=== PATIENT | male | born 1955 | race Caucasian/White ===

== ENCOUNTER 2021-01-16 09:32 | Outpatient (CLI) | payer MEDICARE, SELFPAY ==
--- NOTE | 2021-01-16 09:36 | USCV_ITS ---
Lawson Miguel Age: 65 Gender: M : 1955 Exam Date: 01/16/2021 09:56 Ordering Phys: Margarita Lanza CUSTOMER ENGAGEMENT MANAGER Technologist: Tara Sharma Exam Location: [facility] [place] Indication: SCREENING HISTORY: Screening Diameter (cm) AP x Transverse x Length Velocity (cm/s) Waveform Prox Aorta: 1.67 x 1.78 x 62.40 Mid Aorta: 1.72 x 1.91 x 85.90 Distal Aorta: 1.87 x 1.79 x 91.50 Right Iliac Prox: 1.19 x 1.07 x 74.80 Left Iliac Prox: 0.97 x 1.21 x 90.10 Stent Prox Landing x x Aneurysmal Sac Max x x Lt Lat Sac Dim Rt Lat Sac Dim Stent Dist Landing x x Right Iliac Stent x x Left Iliac Stent x x Right Renal Art Left Renal Art FINDINGS: CONCLUSIONS No evidence of abdominal aortic or bilateral iliac aneurysm. Daren Alvarenga MD (Electronically Signed) Final Date: 17 January 2021 14:52 S
== END 2021-01-16 09:33 | disposition home or self-care (01) ==
LOC: US 09:34
PROVIDERS: PCP Nurse Practitioner Family; Visit Provider Nurse Practitioner Family
DX: Z13.6 Encounter for screening for cardiovascular disorders (principal)
CPT/HCPCS: 76706

== ENCOUNTER 2021-12-28 11:12 | Outpatient (CLI) | payer MEDICARE, SELFPAY ==
--- NOTE | 2021-12-28 11:29 | XRR_ITS ---
PROCEDURE INFORMATION: Exam: XR Left Knee Exam date and time: 12/28/2021 11:40 AM Age: 66 years old Clinical indication: Pain; Knee; Left; Additional info: Pain in left knee TECHNIQUE: Imaging protocol: Radiologic exam of the Left knee. Views: 3 views. COMPARISON: CR Ankle 3 views, LEFT* [id number] 05/23/2016 5:06 PM FINDINGS: Bones/joints: Mild tricompartmental osteoarthritis of the knee. Small joint effusion. Soft tissues: Normal. XR/XR knee LT 3V* [id number] IMPRESSION: 1. Mild tricompartmental osteoarthritis of the knee. 2. Small joint effusion.
== END 2021-12-28 11:13 | disposition home or self-care (01) ==
LOC: RAD 11:14
PROVIDERS: PCP Nurse Practitioner Family; Visit Provider Nurse Practitioner Family
DX: M25.562 Pain in left knee (principal)
CPT/HCPCS: 73562

== ENCOUNTER → 2022-01-03 09:33 | Outpatient (BNVA) | payer MEDICARE, SELFPAY | PROVIDERS: PCP Nurse Practitioner Family; Referring Provider Nurse Practitioner Family; Visit Provider Orthopaedic Surgery | DX: M17.12 Unilateral primary osteoarthritis, left knee (principal) | CPT/HCPCS: 20610; 99203; J0702; J3490 ==

== ENCOUNTER 2022-01-09 06:00 | Outpatient (RCR) | payer MEDICARE, SELFPAY | END 2022-02-07 23:59 | disposition home or self-care (01) | LOC: MPT 06:00 | PROVIDERS: PCP Nurse Practitioner Family; Referring Provider Orthopaedic Surgery; Visit Provider Orthopaedic Surgery | DX: M25.562 Pain in left knee (principal) | CPT/HCPCS: 97110; 97161; G0283 ==

== ENCOUNTER 2022-02-08 06:00 | Outpatient (RCR) | payer MEDICARE, SELFPAY | END 2022-03-09 23:59 | disposition home or self-care (01) | LOC: MPT 06:00 | PROVIDERS: PCP Nurse Practitioner Family; Visit Provider Orthopaedic Surgery | DX: M25.562 Pain in left knee (principal) | CPT/HCPCS: 97110; G0283 ==

== ENCOUNTER 2023-01-19 09:20 | Emergency (ER) | payer MEDICARE, SELFPAY ==
[2023-01-19 09:28] VITALS: PULSE 68; RESP 16; O2SAT 96; BMI 34.8
--- NOTE | 2023-01-19 09:29 | XRR_ITS ---
PROCEDURE INFORMATION: Exam: XR Right Hand Exam date and time: 01/19/2023 9:38 AM Age: 67 years old Clinical indication: Injury or trauma; Fall; Swelling (edema); Hand; Right; Additional info: Fall, injury, swelling TECHNIQUE: Imaging protocol: Radiologic exam of the right hand. Views: 3 or more views. COMPARISON: No relevant prior studies available. FINDINGS: Bones/joints: There is 5th metacarpophalangeal dislocation with dorsal displacement Soft tissues: of the proximal phalanx with respect to the metacarpal. There is no evidence for fracture. There is associated soft tissue swelling. XR/XR hand RT min 3V* [id number] IMPRESSION: Right 5th metacarpophalangeal dislocation.
[2023-01-19 09:32] VITALS: BP 175/104
--- NOTE | 2023-01-19 09:40 | ED_ITS ---
HPI - Extremity Problem General: Chief complaint: Extremity Injury, Upper Stated complaint: hsnf injury Time Seen by Provider: 01/19/23 09:29 History of Present Illness: Lawson Miguel is a 67-year-old [id number] male that presents to the emergency department with right hand pain. Patient states he slipped and fell. When trying to break his fall he hyperextended hand/wrist. Patient arrives with swelling to the dorsal aspect of the hand and tenderness to the ulnar aspect of the hand. No open wounds Sensation intact to light touch Denies previous injury to the hand Has a medical history that includes high cholesterol, hypertension, depression. Striking his head or loss of consciousness Denies neck, thoracic, lumbar back pain Denies any other extremity, muscle, joint pain Associated symptoms: Deny chest pain, fever(s) or rash Review of Systems General: Reports: 10 or more systems reviewed and unremarkable except in HPI and below Const: Denies: fever(s), chills, change in appetite, change in weight, fatigue or malaise Eyes: Denies: change in vision, eye discomfort, eye discharge or eye redness ENMT: Denies: throat pain, enlarged tonsils, odynophagia, hoarseness, ear or mastoid pain, ear discharge, change in hearing, tinnitus, nasal discharge, nasal congestion, post nasal drip or sinus pain Card: Denies: chest pain, palpitations, irregular heart rhythm, edema, dyspnea on exertion, orthopnea or leg pain with exertion Resp: Denies: dyspnea, productive cough, non-productive cough, wheezing, stridor or chest congestion GI: Denies: abdominal pain, nausea, vomiting, dysphagia, diarrhea, constipation, bloating, GI cramping or hematochezia : Denies: flank pain, dysuria, urinary frequency, urinary urgency, urinary hesitancy, oliguria or hematuria Musc: Denies: neck pain, back pain, extremity pain, joint pain, joint swelling, joint redness, joint warmth or muscle weakness Skin/Breast: Denies: rash, pruritus, erythema, photosensitivity or new lesions Neuro: Denies: headache(s), numbness in extremities, weakness in extremities, sensory changes, lack of coordination, difficulty walking, frequent falls, dizziness, confusion, Slurred speech present, difficulty communicating thoughts, seizure-like activity or involuntary movements Endo: Denies: polyuria, polydipsia or tired all the time Juancho/Lymph: Denies: easy bruising or easy bleeding PFSH ED PFSH: Social History (Updated 01/03/22 @ 10:09 by Callum Grullon LPN) Smoking and tobacco status: former smoker Alcohol intake: never Substance/Drug Use: never Physical Exam Const: COMMON NORMALS: no acute distress, patient oriented x3 and alert GENERAL APPEARANCE: cooperative ORIENTATION/CONSCIOUSNESS: Yes awake, Yes oriented to person, Yes oriented to place and Yes oriented to time HENMT: COMMON NORMALS: normocephalic and atraumatic HEAD & SCALP: normocephalic and atraumatic FACE & SINUS: normal facial exam MOUTH: Normal oral and palatal mucosa present THROAT: posterior oropharynx normal Eye: COMMON NORMALS: Equal, round and reactive pupils present, EOMs intact bilaterally, conjunctivae normal and no scleral icterus GENERAL EYE: appearance normal, both eyes and all related structures ALIGNMENT: Yes alignment normal PERIORBITAL: periorbital findings normal CONJUNCTIVA: Yes conjunctivae normal PUPIL: Yes Equal, round and reactive pupils present Neck/C-Spine: COMMON NORMALS: full ROM GENERAL: Yes normal visual inspect ion Lymph: LYMPHATIC: no lymphadenopathy noted Chest: COMMONS NORMALS: normal inspection of the chest Breast/axilla inspection: Yes no chest deformity, asymmetry, normal contours, no nodules, masses, tenderness Resp: COMMON NORMALS: normal respiratory effort, No retractions, No use of accessory muscles and clear to auscultation bilaterally EFFORT & INSPECTION: Yes able to speak in complete sentences and Yes symmetric chest movement AUSCULTATION: clear to auscultation bilaterally Cardio: COMMON NORMALS: regular rate, regular rhythm and Peripheral pulses 2+ throughout RATE: regular rate RHYTHM: regular rhythm PERIPHERAL PULSES: Peripheral pulses 2+ throughout GI: COMMON NORMALS: Normal to inspection, nondistended, normoactive bowel sounds present, Soft to palpation, non-tender and No hepatosplenomegaly present INSPECTION: Yes normal to inspection AUSCULTATION: Yes normoactive bowel sounds PALPATION: Yes Soft to palpation and Yes No hepatosplenomegaly present RECTAL EXAM: Yes deferred Extremity: NARRATIVE EXTREMITY EXAM: Right upper extremity: Full active range of motion to shoulder and elbow Full wrist extension and flexion Patient is tender to palpation over the dorsal aspect of the right hand?particularly over the ulnar aspect of the hand Patient is able to give a thumbs up, make an okay sign, cross fingers. Making a fist and abducting fingers is difficult and limited due to pain Sensation intact to light touch at radial, ulnar, median nerve distributions Radial pulses palpable and cap refills less than 3 seconds Neuro: COMMON NORMALS: patient oriented x3 SENSORIUM/ORIENTATION: Yes alert, Yes oriented to person, Yes oriented to place and Yes oriented to time CRANIAL NERVES: Yes CN normal except as noted Psych: COMMON NORMALS: mental status grossly normal, Normal thought process present, cooperative, activity/motor behavior normal, denies homicidal ideation and denies suicidal ideation THOUGHT PROCESS: Normal thought process present Skin: COMMON NORMALS: no rashes or lesions noted, no wounds and turgor normal GENERAL SKIN EXAM: no rashes or lesions noted and turgor normal Course Vital Signs: Vital signs: Vital Signs Pulse Rate 68 01/19/23 09:28 Respiratory Rate 16 01/19/23 09:28 Blood Pressure 175/104 01/19/23 09:32 Pulse Oximetry 96 01/19/23 09:28 Oxygen Delivery Me thod Room Air 01/19/23 09:28 MDM - Extremity (Nontraumatic) Medical Decision Making Differential diagnoses includes fracture, fracture dislocation, contusion XR imaging of the right hand revealed 5th metacarpal dislocation without apparent fracture. Reduction of the joint was completed with distraction, a degree of flexion, and counterpressure at the MCP joint. Reduction was felt. Postreduction exam largely unchanged. Patient can extend his fifth digit. Patient is going to be placed in a ulnar gutter splint. Post reduction imaging obtained. Adequate reduction on postreduction imaging; no visible fractures. I did speak with Dr. Lan at 1020 in the morning. She is agreeable to seeing the patient outpatient. Lab Data Radiology Impressions Hand X-Ray 01/19/23 10:11 IMPRESSION: Interval reduction of previously noted right 5th metacarpophalangeal dislocation. Discharge Plan Discharge Patient Disposition: Home Clinical Impression: Closed dislocation of MCP joint of hand Condition: Stable Prescriptions: No Action lisinopril 40 mg tablet 40 mg PO DAILY hydrochlorothiazide 25 mg tablet 25 mg PO DAILY simvastatin 20 mg tablet 20 mg PO DAILY fentanyl 75 mcg/hr patch 72 hour 1 patch transdermal Q72H duloxetine [Cymbalta] 60 mg capsule,delayed release(DR/EC) 60 mg PO DAILY duloxetine [Cymbalta] 30 mg capsule,delayed release(DR/EC) 30 mg PO DAILY tramadol 50 mg tablet 50 mg PO TID PRN Discharge Orders: Discharge ED (Routine); Ordered 01/19/23 Ordered By: Vinod Huerta Referrals: Peri Lan MD [Physician] - Lanza,REX Avila [Primary Care Provider] - Discharge Diet: Advance as tolerated Discharge Activity: Resume usual activity Patient Instructions: Closed Reduction (ED), Finger Dislocation (ED), Pain Management Activity Restrictions/Additional Instructions: You are to keep your splint clean dry and intact No lifting pushing or pulling with the right hand Use Tylenol and nonsteroidal anti-inflammatory drugs like ibuprofen for pain management Elevate the extremity and ice it for additional comfort. Call Dr. Lan's office Saturday for an appointment Return to the emergency department as needed for new concerning or worsening symptoms Coding Level of Care Code ED Construction Equipment Operator for Maricarmen Rojas
--- NOTE | 2023-01-19 10:11 | XRR_ITS ---
PROCEDURE INFORMATION: Exam: XR Right Hand Exam date and time: 01/19/2023 10:22 AM Age: 67 years old Clinical indication: Injury or trauma; Fall; Dislocation; Right; Little finger; Additional info: Post reduction TECHNIQUE: Imaging protocol: Radiologic exam of the right hand. Views: 3 or more views. COMPARISON: CR (UP EX, ) 01/19/2023 9:38 AM FINDINGS: Bones/joints: There has been interval reduction of the previously noted 5th metacarpophalangeal dislocation. There is no evidence for fracture. Soft tissues: There is dorsal soft tissue swelling. XR/XR hand RT min 3V* [id number] IMPRESSION: Interval reduction of previously noted right 5th metacarpophalangeal dislocation.
[2023-01-19] MEDS: ketorolac 30 mg/mL INJ IM (10:26)
[2023-01-19] MEDS: TRAMadol 50 mg Tablet PO (11:12)
[2023-01-19 11:15] VITALS: BP 179/95; RESP 16; O2SAT 96
--- NOTE | 2023-01-21 08:41 | DCPLANNER ---
Addendum entered by Elsi Bernstein 01/29/23 14:55: Patient did attend appointment scheduled with ortho Addendum entered by Elsi Bernstein 01/23/23 11:40: Patient has a follow up appointment scheduled for Saturday, January 28, 2023 at 10:[address] Lan at ortho. Original Note: senior property manager had message to schedule a follow up appointment for patient with ortho. senior property manager sent patients information to the front office staff at ortho. Patients information will be printed and reviewed. Clinic will call patient with appointment information.
== END 2023-01-19 11:19 | disposition home or self-care (01) ==
PROVIDERS: Emergency Provider Nurse Practitioner; PCP Nurse Practitioner Family
DX: S63.266A Dislocation of metacarpophalangeal joint of right little finger, initial encounter (principal); Z87.891 Personal history of nicotine dependence; W01.0XXA Fall on same level from slipping, tripping and stumbling without subsequent striking against object, initial encounter
CPT/HCPCS: 26700; 29125; 73130; 96372; 99284; J1885

== ENCOUNTER → 2023-01-28 09:59 | Outpatient (BNVA) | payer MEDICARE, SELFPAY | PROVIDERS: PCP Nurse Practitioner Family; Referring Provider Nurse Practitioner; Visit Provider Specialist | DX: S63.266A Dislocation of metacarpophalangeal joint of right little finger, initial encounter; W01.0XXA Fall on same level from slipping, tripping and stumbling without subsequent striking against object, initial encounter | CPT/HCPCS: 73130; 99203 ==